=== PATIENT | male | born 1935 ===

== ENCOUNTER → 2017-11-21 12:44 | Outpatient (CLI) | payer OTHER ==
[~2017-11-21] VITALS: Ht 180.3 cm; Wt 65.8 kg
== END | disposition home or self-care (01) ==
LOC: ADM 11:15 → EDSTATUS 11:15 → EKG 12:44 → SURG 11-26 11:15 → EDSTATUS 11-26 11:15 → SURG 11-26 16:15
DX: Z01.810 Encounter for preprocedural cardiovascular examination (principal); C20 Malignant neoplasm of rectum; Z85.038 Personal history of other malignant neoplasm of large intestine; K43.2 Incisional hernia without obstruction or gangrene; K92.1 Melena; R59.0 Localized enlarged lymph nodes

== ENCOUNTER → 2017-11-25 15:00 | Outpatient (CLI) | payer OTHER | END | disposition home or self-care (01) | LOC: LAB 15:00 | DX: D68.8 Other specified coagulation defects (principal) ==

== ENCOUNTER 2017-11-25 15:22 | Outpatient (CLI) | payer OTHER | END 2017-11-25 15:24 | disposition home or self-care (01) | LOC: SONOGRAMA 15:22 | DX: K75.9 Inflammatory liver disease, unspecified (principal); R94.5 Abnormal results of liver function studies ==

== ENCOUNTER 2018-01-28 08:41 | Outpatient (CLI) | payer OTHER | END 2018-01-28 10:19 | disposition home or self-care (01) | LOC: LAB 08:41 | DX: C20 Malignant neoplasm of rectum (principal); Z85.038 Personal history of other malignant neoplasm of large intestine ==

== ENCOUNTER 2018-01-29 11:45 | Inpatient (IN) | payer OTHER ==
[~2018-01-29] VITALS: Ht 180.3 cm; Wt 72.1 kg
== END 2018-02-07 16:08 | disposition home or self-care (01) | DRG 331 ==
LOC: O/R 02-04 10:06 → SURH 02-04 10:06 → MEDI 02-04 16:01 → SURH 02-04 16:01
PROVIDERS: Colon & Rectal Surgery
PROC: 07TD0ZZ Resection of Aortic Lymphatic, Open Approach (ICD-10-PCS; 2018-02-04)
PROC: 07TC0ZZ Resection of Pelvis Lymphatic, Open Approach (ICD-10-PCS; 2018-02-04)
PROC: 0DQE0ZZ Repair Large Intestine, Open Approach (ICD-10-PCS; 2018-02-04)
PROC: 0WQF0ZZ Repair Abdominal Wall, Open Approach (ICD-10-PCS; 2018-02-04)
PROC: 0JX80ZZ Transfer Abdomen Subcutaneous Tissue and Fascia, Open Approach (ICD-10-PCS; 2018-02-04)
PROC: 0DTE0ZZ Resection of Large Intestine, Open Approach (ICD-10-PCS; principal; 2018-02-04 13:00)
PROC: 4A12X4Z Monitoring of Cardiac Electrical Activity, External Approach (ICD-10-PCS; 2018-02-05)
DX: C20 Malignant neoplasm of rectum (principal); K43.2 Incisional hernia without obstruction or gangrene; R59.0 Localized enlarged lymph nodes; Z43.3 Encounter for attention to colostomy

== ENCOUNTER 2018-02-11 21:45 | Inpatient (IN) | payer OTHER ==
[~2018-02-11] VITALS: Ht 170.2 cm; Wt 79.4 kg
== END 2018-02-14 16:42 | disposition home or self-care (01) | DRG 864 ==
LOC: ER 21:45 → SEC-K 02-12 12:41 → SURH 02-12 12:41
DX: R50.82 Postprocedural fever (principal); C20 Malignant neoplasm of rectum; D50.0 Iron deficiency anemia secondary to blood loss (chronic)